=== PATIENT | female | born 1985 | race African-American/Black ===

== ENCOUNTER 2019-03-31 08:15 | Emergency (ER) | payer OTHER, SELFPAY ==
[2019-03-31 08:20] VITALS: BP 131/86; PULSE 91; RESP 18; TEMP 36.1; O2SAT 98; BMI 19.9
--- NOTE | 2019-03-31 08:44 | RAD_ITS ---
STUDY: X-RAY - CERVICAL SPINE REASON FOR EXAM: Female, 33 years old. Neck pain and muscle spasms. TECHNIQUE: 3 view(s) of the cervical spine were obtained. COMPARISON: None FINDINGS: Normal anterior atlantoaxial articulation. Normal odontoid process. There is straightening of the normal cervical lordosis. Normal vertebral bodies and endplates. Normal disc space heights. Normal visualized intervertebral neuroforamina. The soft tissue structures are unremarkable. RAD/Cerv Spine 2 or 3 Views IMPRESSION: Straightening of the normal cervical lordosis. Electronically Signed: Sae Steven, at 9:22 EDT , Service support ,
--- NOTE | 2019-03-31 08:44 | ED.VIS.GEN ---
History of Present Illness Chief Complaint: Other, Pain/Inj Detail of Chief Complaint: Neck and back pain Informant: Patient Onset: Today Context: Sudden Onset Timing: Waxes and wanes Current Severity: Moderate Maximum Severity: Moderate Narrative: Patient states she felt well when she got up this morning. She was stretching and felt something pull in the right side of her neck and right upper back. She reports having pain and slight decreased sensation on the right side of her body. Symptoms seem to be improving in the leg and arm. She still has tightness in the right side of her neck and down to the medial right scapula. She denies chest pain or shortness of breath. She did not take anything for pain. Past Medical History - Allergies and Home Meds Allergies/Adverse Reactions: Allergies No Known Allergies Allergy (Verified 03/31/19 08:22) Prior records reviewed: Yes Past Medical History: - - Reviewed Review of Systems General: Denies: Chills, Fever Eyes: Denies: Visual changes - bilaterally ENT: Denies: Bilateral ear pain Cardiovascular: Denies: Chest pain Respiratory: Denies: Dyspnea, Cough Gastrointestinal: Denies: Abdominal pain, Nausea, Vomiting Musculoskeletal: Reports: Arthralgias, Neck pain, Back pain Skin: Denies: Rash Neurological: Reports: Parasthesia. Denies: Headache Hematologic: Denies: Easy bruising, Easy bleeding Allergy: Denies: Uticaria Physical Exam Vital Signs/Narrative: Vital Signs Temp Pulse Resp BP Pulse Ox 03/31/19 08:20 97 F L 91 18 131/86 H 98 Inital Vital Signs reviewed: Yes General: Well nourished, Well developed Head: Normocephalic Eyes: EOMI ENT: Moist mucous membranes Neck: - - Tenderness to palpation in the right cervical paraspinals. Cardiovascular: Regular rate, Regular rhythm Respiratory: No distress, CTA bilaterally Abdomen: Soft, Nontender Back: - - Right upper thoracic paraspinal tenderness palpation. No midline tenderness. Extremities: Nontender Skin: Normal color, No rash Neurological: Alert, Oriented x3, Normal Strength, Normal Sensation, - - Strong distal pulses Psychological: Normal affect Diagnostic/Tx/Re-eval Impressions Cervical Spine X-Ray 03/31/19 08:44 IMPRESSION: Straightening of the normal cervical lordosis. Electronically Signed: Sae Steven, at 9:22 EDT , Service support , 03/31/19 08:44 Xray Cervical [Cerv Spine 2 or 3 Views] [RAD] Stat - Medical Decision Making Patient was given naproxen here as she does have to drive herself. X-ray results were discussed with her. She will be treated with naproxen and Valium for muscle spasm. She is referred to Dr. Calderón, next on the no doc list to establish primary care. ED Disposition - Plan for ED Patient: Disposition: Home or Assisted Living Diagnosis: Neck muscle spasm Instructions: NECK SPASM, No Trauma Prescriptions: Naproxen [Naprosyn] 500 mg PO BID PRN PRN #20 tablet PRN Reason: Pain Diazepam [Valium] 0.5 - 1 tab PO Q8 PRN #10 tablet PRN Reason: Muscle Spasm Referrals: Estrellita Calderón MD [COURTESY STAFF PHYSICIAN] - As Needed
[2019-03-31] MEDS: Naproxen 500 MG Tablet PO (08:49)
[2019-03-31 10:15] VITALS: BP 146/74; PULSE 76; RESP 18; O2SAT 98
== END 2019-03-31 10:24 | disposition home or self-care (01) ==
PROVIDERS: Emergency Provider Emergency Medicine
DX: M62.838 Other muscle spasm (principal)
CPT/HCPCS: 72040; 99283